=== PATIENT | female | born 1985 | race Caucasian/White ===

== ENCOUNTER 2019-02-10 05:38 | Emergency (ER) | payer OTHER ==
[~2019-02-10] VITALS: Ht 154.9 cm; Wt 72.6 kg
[2019-02-10] MEDS ORDERED: FISH OIL 1,001000 M2 PO (05:48)
[2019-02-10] MEDS ORDERED: UNICOMPLEX M TA1 TA1 PO (05:48)
[2019-02-10 05:55] VITALS: BP 151/85
== END 2019-02-10 06:02 ==
LOC: M.ERS 05:38
DX: F10.129 Alcohol abuse with intoxication, unspecified (principal); Y90.9 Presence of alcohol in blood, level not specified; R00.0 Tachycardia, unspecified

== ENCOUNTER 2021-03-13 15:58 | Emergency (ER) | payer OTHER, MEDICAID ==
[~2021-03-13] VITALS: Ht 165.1 cm; Wt 63.5 kg
[~2021-03-13 15:58] MED LIST: FISH OIL 1,001000 M2 PO; UNICOMPLEX M TA1 TA1 PO
[2021-03-13] MEDS ORDERED: IBUPROFEN 600600 M1 PO (17:02)
[2021-03-13] MEDS ORDERED: NORCO5 PO ×2 (17:02→17:46)
[2021-03-13 18:03] VITALS: BP 140/82
== END 2021-03-13 18:04 | disposition home or self-care (01) ==
LOC: M.ERS 15:58
DX: S82.492A Other fracture of shaft of left fibula, initial encounter for closed fracture (principal); S82.52XA Displaced fracture of medial malleolus of left tibia, initial encounter for closed fracture; X50.1XXA Overexertion from prolonged static or awkward postures, initial encounter; Y93.89 Activity, other specified; Y92.89 Other specified places as the place of occurrence of the external cause; Y99.8 Other external cause status

== ENCOUNTER → 2021-03-22 | Day surgery (SDC) | payer OTHER, MEDICAID ==
[~2021-03-22] MED LIST changes: +ASPIRIN EC325 M1 PO; +IBUPROFEN 600600 M1 PO; +NORCO5 PO; +ROXICODONE5 MG PO
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
[2021-03-22 09:41] LABS: HEMATOCRIT 36.1 % (37.0-47.0); HEMOGLOBIN 11.9 gm/dL (12.0-15.0); MCH 30.6 pg (26.0-34.0); MCV 92.8 fL (80.0-100.0); MPV 8.8 fl. (7.2-11.1); RBC 3.89 mil/uL (4.20-5.00); RDW-CV 13.7 % (10.5-14.5); WBC 6.7 thou/uL (4.0-11.0)
== END | disposition home or self-care (01) ==
LOC: M.SUR 05:20
PROVIDERS: Anesthesiology; ATTEND Orthopaedic Surgery
DX: S82.852A Displaced trimalleolar fracture of left lower leg, initial encounter for closed fracture (principal); M25.572 Pain in left ankle and joints of left foot; Z79.82 Long term (current) use of aspirin; X58.XXXA Exposure to other specified factors, initial encounter; Y93.89 Activity, other specified; Y92.89 Other specified places as the place of occurrence of the external cause; Y99.8 Other external cause status